=== PATIENT | male | born 1960 | race Caucasian/White ===

== ENCOUNTER 2019-03-12 08:15 | Inpatient (IN) | payer OTHER ==
[2019-03-07 16:13] VITALS: BMI 32.5
[2019-03-19] MEDS ORDERED: MIDAZOLAM HCL 2 MG/2 ML SINGLE DOSE VIAL ONE (07:05)
[2019-03-19] MEDS ORDERED: DEXAMETHASONE SOD PHOSPHATE/PF 10 MG/ML SDV ONE (07:05)
[2019-03-19] MEDS ORDERED: BUPIVACAINE HCL/PF 0.5% (5 MG/ML) 30 ML VIAL IJ ONE ×2 (07:05→08:34)
[2019-03-19] MEDS ORDERED: CEFAZOLIN 2 GM in DEXTROSE 5%-WATER - 100 ML IVPB ONE (07:07)
[2019-03-19] MEDS ORDERED: oxyCODONE HCL 10 MG SUSTAINED ACTING TABLET PO STA (07:07)
--- NOTE | 2019-03-19 07:41 | HP ---
History & Physical Update - History History: No Change - Physical Physical: No Change - Assessment Assessment: No Change - Plan Plan: No Change
[2019-03-19] MEDS ORDERED: SUCCINYLCHOLINE CHLORIDE 200 MG/10 ML SYRINGE ONE (08:34)
[2019-03-19] MEDS ORDERED: BUPIVACAINE HCL/PF 0.5% (5MG/ML) 10 ML VIAL ONE (08:35)
[2019-03-19] MEDS ORDERED: oxyCODONE HCL 5 MG TABLET PO PRN ×3 (09:48→11:29)
[2019-03-19] MEDS ORDERED: ONDANSETRON 4 MG/2 ML VIAL IVPUSH PRN ×2 (09:48→11:29)
[2019-03-19] MEDS ORDERED: LACTATED RINGERS SOLUTION 1,000 ML IV SCH ×2 (10:00→11:30)
[2019-03-19] MEDS ORDERED: GUM MASTIC/STORAX/MSAL/ALCOHOL 1 DRP DROPSBTL MC ONE (10:58)
[2019-03-19] MEDS ORDERED: KETOROLAC TROMETHAMINE 30 MG/1 ML VIAL IVPUSH PRN ×2 (11:29→12:00)
[2019-03-19] MEDS ORDERED: ACETAMINOPHEN 325 MG TABLET (FP) PO SCH ×2 (11:30→18:00)
[2019-03-19] MEDS ORDERED: ACETAMINOPHEN 1000 MG/100 ML VIAL (NON FORMULARY) IVPB ONE (11:33)
--- NOTE | 2019-03-19 11:46 | OP ---
Operative Note - Note: Operative Date: 03/19/19 Pre-Operative Diagnosis: spondylolithesis Operation: posterior lumbar decompression, fusion, instrumentation. Tansformainal interbody fusion of L4-5 with allograft and neuromonitoring Surgeon: Romie Leggett Attraction Attendant: Tati Cabral Anesthesiologist/HAT BLOCK BENCH HAND: Brad Hui Anesthesia: Spinal Estimated Blood Loss (mls): 20 Fluid Volume Replaced (mls): 900 Operative Report Dictated: Yes
[2019-03-19] MEDS ORDERED: KETOROLAC TROMETHAMINE 15 MG/ML VIAL IVPUSH PRN (12:14)
[2019-03-19 12:58] VITALS: TEMP 98.2
--- NOTE | 2019-03-19 13:00 | OP ---
DATE OF OPERATION: 03/19/2019 PREOPERATIVE DIAGNOSES: 1. L4-5 spondylolisthesis. 2. L4-5 spinal stenosis. POSTOPERATIVE DIAGNOSES: 1. L4-5 spondylolisthesis. 2. L4-5 spinal stenosis. PROCEDURE PERFORMED: 1. Transforaminal lumbar interbody fusion L4-5. 2. Placement of instrumentation, L4-5. 3. Placement of prosthetic cage. SURGEON: Romie Leggett MD NICKER: TYLER Joya ESTIMATED BLOOD LOSS: 50 mL. INTRAVENOUS FLUIDS: Per Anesthesia. ANESTHESIA: Spinal/TLIP. COMPLICATIONS: There were none. DISPOSITION: Patient brought to the PACU in stable condition. INDICATIONS FOR SURGERY: Patient is a 58-year-old gentleman who has been suffering from pain from his back down his legs. X-ray and MRI are completed, which noted that he has a spondylolisthesis at L4-5 contributing to his stenosis at that level. He had gone through an exhaustive course of treatment for this, which included medications, physical therapy as well as injections. Unfortunately, his pain continued to persist despite all this. At this point, risks, benefits, alternatives were discussed, and the patient consented to surgery. DESCRIPTION OF PROCEDURE: Patient brought to the operating room by anesthesia staff. After appropriate patient identification was performed, spinal anesthesia was given. A TLIP block was also given. Patient was able to position himself prone onto the OR table with all areas and bony prominences well padded at this time. Two needles were placed into his back to nirmala off the L4-5 level. X-ray was taken to confirm this was correct. His back was prepped and draped in a sterile manner. At this point, 2 incisions were made bilaterally over the L4-5 pedicles. Dissection was carried down to the fascia. Fascia was split open at this time. Under C-arm guidance, trocars were advanced into both the L4 and the L5 pedicles. Through the trocars, a wire was inserted. Over the wire, tap and screw were placed in. On the right hand side, retractor blades were set up to expose the L4-5 facet joint. The facet joint was removed. The disk was entered. Using a series of pituitaries, Kerrisons, and curettes, a diskectomy was completed. The endplates were decorticated at this time. Bone graft was laid down. A cage filled with bone graft was placed in. Tulip heads were placed over the screws. A juan alberto was measured and placed in. Caps and compression were applied. On the left hand side, a juan alberto was measured and placed in. Caps and compression were applied. AP and lateral x-rays confirmed the instrumentation to be in good position. The fascia was closed with a No. 1 Vicryl suture. Subcutaneous tissue was closed with 2-0 Vicryl suture. Skin was closed with 3-0 Monocryl suture. Dermabond was applied. Steri-Strips were applied. A sterile dressing was applied. Patient was placed supine on the OR bed, brought to the PACU in stable condition. Rosie [id number]
[2019-03-19] MEDS ORDERED: diazePAM 2 MG TABLET ONE (13:55)
[2019-03-19] MEDS ORDERED: diazePAM 2 MG TABLET PO SCH (14:00)
--- NOTE | 2019-03-19 14:57 | SURG ---
Surgery Thermometer Production Worker Note Thermometer Production Worker: Tati Cabral PA-C Date of Service: 03/19/19 Diagnosis: spondylolithesis Procedure: posterior lumbar decompression, fusion, instrumentation. Tansformainal interbody fusion of L4-5 with allograft and neuromonitoring I was present for the entirety of the operative procedure. For further detail, please refer to operative report. Visit type - Case Type Case Type: Scheduled - Emergency Emergency Visit: No - New patient This patient is new to me today: Yes Date on this admission: 03/19/19
[2019-03-19] MEDS ORDERED: oxyCODONE HCL 5 MG TABLET ONE (15:02)
[2019-03-19] MEDS ORDERED: CEFAZOLIN 1 GM/D5W 1 GM/50 ML BAG ONE (15:18)
[2019-03-19] MEDS ORDERED: ceFAZolin SODIUM 1 GM VIAL IVPB ONE (15:41)
[2019-03-19] MEDS ORDERED: CEFAZOLIN 1 GM/D5W 1 GM/50 ML BAG IVPB SCH (16:00)
[2019-03-19 16:51] VITALS: BP 118/73; PULSE 72
[2019-03-19] MEDS ORDERED: ACETAMINOPHEN 650 MG/20.3 ML ORAL SOLUTION (CUPS) PO SCH (18:00)
[2019-03-20] MEDS ORDERED: metoPROLOL SUCCINATE 25 MG TAB.SR.24H (FP) PO SCH (10:00)
[2019-03-21] MEDS ORDERED: ATORVASTATIN CA 10 MG TABLET (FP) PO SCH (22:00)
== END 2019-03-19 16:40 | disposition home or self-care (01) | DRG 304 ==
LOC: FM/S 03-19 06:08
PROVIDERS: ADMIT Orthopaedic Surgery Orthopaedic Surgery of the Spine; ATTEND Orthopaedic Surgery Orthopaedic Surgery of the Spine
PROC: 0SB20ZZ Excision of Lumbar Vertebral Disc, Open Approach (ICD-10-PCS; 2019-03-19)
PROC: 4A1004G Monitoring of Central Nervous Electrical Activity, Intraoperative, Open Approach (ICD-10-PCS; 2019-03-19)
PROC: 0SG00AJ Fusion of Lumbar Vertebral Joint with Interbody Fusion Device, Posterior Approach, Anterior Column, Open Approach (ICD-10-PCS; principal; 2019-03-19 09:41)
DX: M43.16 Spondylolisthesis, lumbar region (principal); M48.061 Spinal stenosis, lumbar region without neurogenic claudication
CPT/HCPCS: 72100-TC-FY; 76000-TC-FY; 94760; J0131